=== PATIENT | female | born 1960 | race Caucasian/White ===

== ENCOUNTER 2019-12-03 16:42 | Emergency (ER) | payer OTHER ==
[2019-12-03] MEDS ORDERED: Lidocaine 1% w/Epinephrine 1:100K 20 ML VIAL ONE (17:16)
[2019-12-03] MEDS ORDERED: Adacel (T-DAP) 0.5 ML SYRINGE ONE (17:16)
--- NOTE | 2019-12-03 17:21 | RAD ---
RIGHT WRIST: 12/03/19 Four views. HISTORY: Dog bite. Carpals appear normally aligned and appear intact. Moderately severe degenerative change at the first carpometacarpal joint is noted. No acute osseous abnormality identified. No soft tissue abnormalitie s seen. IMPRESSION: No acute finding. Degenerative changes at the first carpometacarpal is noted. POS: [facility]
== END 2019-12-03 17:53 | disposition home or self-care (01) ==
LOC: MADERS 16:42
DX: S61.551A Open bite of right wrist, initial encounter (principal); Z79.899 Other long term (current) drug therapy; W54.0XXA Bitten by dog, initial encounter
CPT/HCPCS: 12002; 90471; 90715

== ENCOUNTER 2019-12-05 14:05 | Emergency (ER) | payer OTHER ==
[2019-12-05] MEDS ORDERED: Triple Antibiotic Oint 1 GM Packet ONE (14:35)
[2019-12-05] MEDS ORDERED: cefTRIAXone\\ROCEPHIN 1 GM VIAL ONE (14:35)
[2019-12-05] MEDS ORDERED: Lidocaine 1% 20 ML MDV ONE (14:35)
== END 2019-12-05 15:00 | disposition home or self-care (01) ==
LOC: MADERS 14:05
DX: S61.551A Open bite of right wrist, initial encounter (principal); W54.0XXA Bitten by dog, initial encounter
CPT/HCPCS: 96372; 99282; J0696; J2001

== ENCOUNTER 2020-02-13 11:19 | Emergency (ER) | payer OTHER ==
[~2020-02-13 11:19] MED LIST: Iopamidol 370 76% 100 ML VIAL ONE
[2020-02-13] MEDS ORDERED: Lidocaine 1% w/Epinephrine 1:100K 20 ML VIAL ONE (11:50)
[2020-02-13 12:42] LABS: #Basophils 0.2 thou/uL (0.0-0.2); #Eosinphils 0.1 thou/uL (0.0-0.7); #Lymphocytes 2.3 thou/uL (1.20-3.40); #Monocytes 0.6 thou/uL (0.11-0.59); #Neutrophils 5.1 thou/uL (1.40-6.50); %Basophils 1.8 % (0.0-1.0); %Lymphocytes 27.5 % (21.0-51.0); %Monocytes 7.4 % (0.0-10.0); %Neutrophils 62.2 % (42.0-75.0); Hemoglobin 13.5 g/dL (12.0-16.0); Mean Corpuscular HGB CONC 31.2 g/dL (32.0-36.0); Mean Corpuscular Hemoglobin 29.3 pg (27.0-31.0); Mean Platelet Volume 7.1 fL (7.4-10.4); Platelet Count 277 thou/uL (130-400); RBC Distribution Width 12.4 % (11.5-14.5); Red Blood Cell (RBC) Count 4.59 mill/uL (4.20-5.40); White Blood Cell (WBC) Count 8.2 thou/uL (4.8-10.8)
[2020-02-13] MEDS ORDERED: Piperacillin/Tazobactam 3.375 GM VIAL ONE (12:43)
[2020-02-13] MEDS ORDERED: Sodium Chloride 0.9% 100 ML ONE (12:44)
[2020-02-13] MEDS ORDERED: Sodium Chloride 0.9% 250 ML 250 ML ONE (12:45)
[2020-02-13] MEDS ORDERED: Morphine 4 MG/ML VIAL ONE (12:47)
[2020-02-13 12:51] LABS: INR-International Normal Ratio 0.9; PTT 23.5 sec (22.9-36.1); Prothrombin Time 11.6 sec (12.0-14.7)
[2020-02-13 12:58] LABS: Anion Gap 16 mmol/L (10-20); BUN (Urea Nitrogen) 18 mg/dL (9.8-20.1); Calc. Creatinine Clearance 0 mL/min (70-130); Calcium 9.9 mg/dL (7.8-10.44); Carbon Dioxide 26 mmol/L (22-29); Chloride 102 mmol/L (98-107); Estimated GFR-MDRD 65; Glucose 126 mg/dL (70-105); Potassium 4.1 mmol/L (3.5-5.1); Sodium 140 mmol/L (136-145)
--- NOTE | 2020-02-13 13:48 | CT ---
CT Abdomen Pelvis Trauma History: Injury. Dog bite Comparison: None. Findings: Lung bases are clear. No pericardial effusion. There are peripherally enhancing mass is within hepatic segments 6 and 7, likely hemangiomas. Laceration and contusion on the right flank with some involvement of the external oblique muscle. No large intramuscular hematoma. No extension into the peritoneum. No hydronephrosis. Aortic contour is nonaneurysmal. No dilated loops of large or small bowel. No free intraperitoneal gas or fluid. Spleen and pancreas are unremarkable. No retroperitoneal periaortic adenopathy. Mild degenerative changes lower lumbar spine. No acute osseous abnormality. Impression: 1. Right flank laceration with small hematoma of the right external oblique muscle. No intraperitonea l injury. 2. Benign hepatic hemangiomas.
[2020-02-13] MEDS ORDERED: Ondansetron PF 4 MG/2 ML Vial ONE (14:09)
== END 2020-02-13 14:13 | disposition short-term general hospital (02) ==
LOC: MADERS 11:19
DX: S31.159A Open bite of abdominal wall, unspecified quadrant without penetration into peritoneal cavity, initial encounter (principal); S01.01XA Laceration without foreign body of scalp, initial encounter; G43.909 Migraine, unspecified, not intractable, without status migrainosus; Z87.442 Personal history of urinary calculi; Z79.899 Other long term (current) drug therapy; W54.0XXA Bitten by dog, initial encounter
CPT/HCPCS: 12005; 74177; 80048; 85025; 85610; 85730; 96365; 96375; J2270; J2405; J2543; J3370; J3490; J7050; Q9967